=== PATIENT | female | born 1980 ===

== ENCOUNTER → 2021-03-14 09:46 | Outpatient (CLI) | payer OTHER, SELFPAY ==
[2021-03-14 10:35] LABS: Add Manual Diff / Slide Review NO; Basophils Absolute Auto 0 /uL (0-100); Basophils Percent Auto 0.6 % (0-2); Eosinophils Absolute Auto 100 /uL (0-450); Eosinophils Percent Auto 1.3 % (2-4); Hematocrit 39.1 % (36-46); Hemoglobin 13.1 g/dL (12.0-16.0); Lymphocytes Absolute Auto 1900 /uL (1100-4500); Lymphocytes Percent Auto 40.7 % (25-40); Mean Corpuscular HGB Conc 33.6 % (30-36); Mean Corpuscular Hemoglobin 30.5 PG (26-34); Mean Corpuscular Volume 90.9 fL (80-100); Monocytes Absolute Auto 500 /uL (0-900); Neutrophils Absolute Auto 2200 /uL (1500-7000); Neutrophils Percent Auto 47.4 % (50-75); Platelet Count 264 X10^3/uL (150-400); Red Cell Distribution Width 13.6 % (11.6-14.8); White Blood Cell Count 4.5 X10^3/uL (4.5-11.0)
[2021-03-14 10:54] LABS: UR Morphine/Opiate cutoff 300 Negative (Negative); Ur Creatinine Normal (Normal); Ur Specific Gravity Normal (Normal); Urine Amphetamines Negative (Negative); Urine Barbiturates Negative (Negative); Urine Benzodiazepines Negative (Negative); Urine Cocaine Negative (Negative); Urine MDMA Negative (Negative); Urine Methadone Negative (Negative); Urine Methamphetamines Negative (Negative); Urine Oxycodone Negative (Negative); Urine Phencyclidine Negative (Negative); Urine Tetrahydrocannabinol Negative (Negative); Urine Tricyclic Antidepressant Negative (Negative); Urine pH Normal (Normal)
[2021-03-14 11:15] LABS: Alanine Aminotransferase 19 IU/L (<35); Albumin 4.3 g/dL (3.5-5.0); Albumin Globulin Ratio 1.3 (1.0-2.8); Alkaline Phosphatase 36 U/L (38-126); Aspartate Aminotransferase 33 IU/L (14-36); Bilirubin Total 0.3 mg/dL (0.2-1.3); Blood Urea Nitrogen 17 mg/dL (7-17); Calcium 9.6 mg/dL (8.4-10.2); Carbon Dioxide 27 mmol/L (22-32); Chloride 103 mmol/L (98-107); Cholesterol 234 mg/dL (140-199); Estimated Glomerular Filt Rate > 60.0 mL/min (>60); Globulin 3.3 g/dL (1.7-4.1); Glucose 95 mg/dL (70-100); HEMOLYSIS < 15 (0-50); Potassium 3.6 mmol/L (3.4-5.1); Sodium 137 mmol/L (137-145); Total Protein 7.6 g/dL (6.3-8.2); Triglycerides 106 mg/dL (35-150)
[2021-03-14 11:23] LABS: HDL Cholesterol 125 mg/dL (40-60); LDL Cholesterol Calculated 88 mg/dL (<100)
[2021-03-14 11:48] LABS: TSH w/ Reflex to FT4 0.88 uIU/mL (0.47-4.68)
== END ==
PROVIDERS: PCP Registered Nurse; Referring Provider Registered Nurse; Visit Provider Registered Nurse
DX: D21.9 Benign neoplasm of connective and other soft tissue, unspecified (principal); F40.243 Fear of flying; F90.9 Attention-deficit hyperactivity disorder, unspecified type; Z79.899 Other long term (current) drug therapy; Z83.49 Family history of other endocrine, nutritional and metabolic diseases; Z82.49 Family history of ischemic heart disease and other diseases of the circulatory system
CPT/HCPCS: 36415; 80053; 80061; 80305; 84443; 85025

== ENCOUNTER → 2021-04-13 13:47 | Outpatient (CLI) | payer OTHER, SELFPAY ==
--- NOTE | 2021-04-13 13:48 | DI.MRI.S_ITS ---
PROCEDURE: MR THORACIC SPINE WO CON INDICATIONS: lower back pain (chronic) TECHNIQUE: Noncontrast sagittal T1 spine echo and T2 fast spin echo, sagittal STIR, axial T1 and T2 fast spin echo through the thoracic spine. COMPARISON: None. FINDINGS: Image quality: Excellent. Alignment and Curvature: Mild dextroconvex scoliotic curvature is seen. Bone Marrow: Marrow is of normal overall signal. No acute vertebral body compression fractures. Spinal Cord: Visualized spinal cord is normal in size and signal. Paraspinous Soft Tissues: No paravertebral masses. Miscellaneous: On axial images, central canal and foramina appear widely patent at all scanned levels. IMPRESSION: No significant focal disc pathology, central canal narrowing, or neural foraminal narrowing can be seen. Mild dextroconvex scoliotic curvature is seen. Dictated by: Toribio Etienne M.D. on 04/13/2021 at 15:49 Approved by: Toribio Etienne M.D. on 04/13/2021 at 15:50
== END ==
PROVIDERS: PCP Registered Nurse; Referring Provider Registered Nurse; Visit Provider Registered Nurse
DX: M54.5 Low back pain (principal); M41.9 Scoliosis, unspecified; G89.29 Other chronic pain
CPT/HCPCS: 72146

== ENCOUNTER → 2021-05-18 08:22 | Outpatient (CLI) | payer OTHER, SELFPAY | PROVIDERS: PCP Registered Nurse; Visit Provider Nurse Practitioner | DX: J02.9 Acute pharyngitis, unspecified (principal) | CPT/HCPCS: 87070 ==

== ENCOUNTER → 2021-05-20 14:27 | Outpatient (CLI) | payer OTHER, SELFPAY ==
[2021-05-21 09:39] LABS: Varicella IgG Antibody 1073 index (Immune >165)
[2021-05-21 11:15] LABS: Mumps Virus IgG Antibody 69.3 AU/mL (Immune >10.9)
[2021-05-23 14:30] LABS: Hepatitis Be Antibody Negative (Negative)
[2021-05-23 22:38] LABS: Diptheria Antitoxoid B <0.10 IU/mL (<0.10)
== END ==
PROVIDERS: PCP Registered Nurse; Referring Provider Registered Nurse; Visit Provider Registered Nurse
DX: Z23 Encounter for immunization (principal)
CPT/HCPCS: 36415; 86317; 86707; 86735; 86762; 86765; 86787

== ENCOUNTER → 2021-07-13 15:29 | Outpatient (CLI) | payer OTHER, SELFPAY ==
[2021-07-15 16:52] LABS: QuantiFERON Mitogen Value >10.00 IU/mL (.); QuantiFERON Nil Value 0.09 IU/mL (.); QuantiFERON TB Gold Plus Negative (Negative); QuantiFERON TB1 Ag Value 0.13 IU/mL (.); QuantiFERON TB2 Ag Value 0.13 IU/mL (.)
== END ==
PROVIDERS: PCP Registered Nurse; Referring Provider Nurse Practitioner; Visit Provider Nurse Practitioner
DX: Z11.1 Encounter for screening for respiratory tuberculosis (principal)
CPT/HCPCS: 36415; 86480

== ENCOUNTER 2021-09-12 01:26 | Emergency (ER) | payer OTHER, SELFPAY ==
--- NOTE | 2021-09-12 01:41 | DI.RAD.S_ITS ---
PROCEDURE: XR RIBS RT MIN 3V W CXR 1V INDICATIONS: Pain to Right posterior ribs, worse with inspiration, hx covid TECHNIQUE: 2 views of the right ribs were acquired, along with a single view chest. COMPARISON: None. FINDINGS: Surgical changes and devices: None. Bones and chest wall: No fractures or dislocations. No suspicious bony lesions. Overlying soft tissues appear unremarkable. Lungs and pleura: No pleural effusions or pneumothorax. Lungs appear clear. Mediastinum: Mediastinal contours appear normal. Heart size is normal. IMPRESSION: No acute cardiopulmonary abnormality. Normal right ribs Dictated by: Kunal Gorman M.D. on 09/12/2021 at 2:03 Approved by: Kunal Gorman M.D. on 09/12/2021 at 2:04
[2021-09-12 01:42] VITALS: BP 98/68; PULSE 95; RESP 17; TEMP 37.1; O2SAT 95; BMI 20.9
--- NOTE | 2021-09-12 02:24 | ED_ITS ---
HPI - Back Pain/Injury General Chief Complaint: Back Pain/Injury Stated Complaint: POSSIBLE BROKEN RIB HARD TO BREATH Time Seen by Provider: 09/12/21 02:01 Source: patient History of Present Illness HPI Narrative: 41-year-old woman with history of ADHD and occasional use of methylphenidate presents with severe right posterior rib and chest wall pain. She states that approximately 48 hours ago she was bending over to pull on a pair pants felt a slight tug or pull in the area of concern. It did not bother her particularly and she was able to go mountain biking later that day. This morning she found that she was in significantly more pain that continued to bother her much of the day. She was able to go to sleep around 11:00 p.m. and awoke at 1:00 p.m. with pain severe enough that she was unable to sleep or roll over in bed. She comes to the emergency department for further evaluation. She reports no recent fever, cough, chills, dyspnea, orthopnea, palpitations, vomiting, diarrhea, abdominal pain. Related Data Home Medications Medication Instructions Recorded Confirmed methylphenidate HCl 10 mg tablet 10 mg PO DAILY PRN tab 07/12/21 (Ritalin) Previous Rx's Medication Instructions Recorded diazepam 5 mg tablet (Valium) 5 mg PO ONCE PRN #5 tab 03/15/21 hepatitis B virus vacc.rec(PF) 20 1 ml IM ONCE #1 ml 07/12/21 mcg/mL intramuscular susp methylphenidate HCl 10 mg 10 mg PO QAM #30 tab 07/12/21 tablet,extended release Allergies Allergy/AdvReac Type Severity Reaction Status Date / Time No Known Drug Allergies Allergy Unverified 07/12/21 15:35 Review of Systems Review of Systems Narrative: Remainder of complete review of systems is otherwise unremarkable except for that included in the HPI. Patient History Medical History Chicken pox (~1986) Medication management Painful menstrual periods (~1993) Rubella (~1987) Surgical History Anesthesia History of placement of ear tubes Family History Grandfather History of heart disease Social History Smoking Status: Never smoker Smoking Status: Never smoker alcohol intake frequency: 0-2 drinks per day Substance Use Type: does not use Exam Initial Vital Signs Initial Vital Signs: Vital Signs Temperature 98.7 F 09/12/21 01:42 Pulse Rate 95 H 09/12/21 01:42 Respiratory Rate 17 09/12/21 01:42 Blood Pressure 98/68 09/12/21 01:42 Pulse Oximetry 95 09/12/21 01:42 General: Healthy appearing, in mild distress. Able to give a complete and coherent history. Well-nourished well-developed HEENT: Moist mucous membranes, normal sclera with reactive pupils, Respiratory: Lungs are clear to auscultation, no wheezing no rales no rhonchi. Full and symmetrical air movement Chest: No skin changes to suggest zoster. There is some mild fullness over the area of tenderness with reproducible pain on palpation. There are no abrasions, contusions and no subcutaneous air appreciated Cardiac: Regular rate and rhythm no murmurs no bruits Abdomen: Soft, nontender, good bowel tones, no flank pain Skin: Warm and dry, no rashes Neurologic: Grossly neurologically intact with no obvious asymmetries or abnormalities Extremities: No trauma, well perfused Psych: Cooperative, appropriate insight and affect Course Orders Ordered: ED Orders 09/12/21 01:41 XR ribs RT min 3V w CXR1V Stat Discontinued Medications Ketorolac Tromethamine (Ketorolac 30 Mg/Ml Vial) 30 mg IM NOW ONE Stop: 09/12/21 02:54 Oxycodone/Acetaminophen (Oxycodone/Apap 5/325 Prepack) 1 bottle MISC SEEINSTR ONE Stop: 09/12/21 02:54 Vital Signs Vital signs: Vital Signs - 8 hr 09/12/21 01:42 Temperature 98.7 F Pulse Rate 95 H Respiratory Rate 17 Blood Pressure 98/68 Pulse Oximetry 95 MDM - Back Pain/Injury Imaging Data Chest x-ray: Radiologist's Impression: FINDINGS:? ? Surgical changes and devices:? None.? ? Bones and chest wall:? No fractures or dislocations.? No suspicious bony lesions.? Overlying soft tissues appear unremarkable.? ? Lungs and pleura:? No pleural effusions or pneumothorax.? Lungs appear clear.? ? Mediastinum:? Mediastinal contours appear normal.? Heart size is normal.? ? IMPRESSION:? No acute cardiopulmonary abnormality.? Normal right ribs ? ? Dictated by: Kunal Gorman M.D. on 09/12/2021 at 2:03? ?? MDM Narrative Medical decision making narrative: 41-year-old woman presents with right-sided posterior rib pain after feeling a slight pull and tug to the area while she was getting dressed yesterday morning. The pain has progressed to the point that it woke her from sleep and she is having trouble taking a deep breath. She took some ibuprofen yesterday and did find that it was somewhat helpful she did not take any additional medication today. She reports no cough fevers. Chest x-ray is unremarkable. Physical exam suggests some fullness over the area of concern consistent with probable mild muscle strain. No evidence of pneumothorax, consolidation to the lung or pulmonary infarct. No other musculoskeletal complaints and no other appreciated trauma. Findings are reviewed with patient recommendations for ibuprofen and Tylenol are made with 4 tablets of Percocet given for immediate pain relief when she gets home and to help to the next 24-48 hours. She is safe for home discharge Discharge Plan Departure Patient Disposition: Home Clinical Impression: Chest wall muscle strain Instructions: DI for Back Strain or Sprain Activity Restrictions/Additional Instructions: Thank you for coming in tonight Your x-ray is very reassuring. You do have some swelling and tenderness over that area of concern on your back. There are no skin changes to suggest shingl es. I suspect that you twisted and pulled just right and strained some of the muscles around the ribs on the right side which is why your hurting so much. Frequently with chest wall muscles like this you will hurt the most the day after the injury. Today should be the worst but it may continue to hurt this much for the next 24 hours. Your given a shot of Toradol which is an anti inflammatory in the emergency department. If you are still hurting by the time you get home please take 1 Percocet. Using 400 mg of ibuprofen (2 [id number] pills) and 1 Tylenol every 6 hours can be very helpful in controlling pain. For severe pain you can take 400 mg of ibuprofen and 1 Percocet. If you have new symptoms, developed a rash, find that your hurting more by Sunday or Sunday you do need to return to the emergency department for further evaluation. Prescriptions: No Action diazepam [Valium] 5 mg tablet 5 mg PO ONCE PRN (Reason: fear of flying) Qty: 5 0RF methylphenidate HCl [Ritalin] 10 mg tablet 10 mg PO DAILY PRN (Reason: ADHD) 0RF hepatitis B virus vacc.rec(PF) 20 mcg/mL suspension 1 ml IM ONCE Qty: 1 2RF Rx Instructions: As a single dose, 2nd dose in 4-8 weeks, then 3rd dose 4-6 months after 1st dose methylphenidate HCl 10 mg tablet extended release 10 mg PO QAM Qty: 30 0RF Rx Instructions: Take 1 tab each morning for ADHD symptoms Referrals: Chica Potter ARNP [Primary Care Provider] -
[2021-09-12] MEDS: KETOROLAC 30 MG/ML VIAL IM (03:06)
[2021-09-12] MEDS: OXYCODONE/APAP 5/325 PREPACK 1 BOTTLE MISC (03:06)
== END 2021-09-12 03:35 | disposition home or self-care (01) ==
PROVIDERS: Emergency Provider Emergency Medicine; PCP Registered Nurse
DX: S29.011A Strain of muscle and tendon of front wall of thorax, initial encounter (principal); X50.1XXA Overexertion from prolonged static or awkward postures, initial encounter
CPT/HCPCS: 71101; 96372; 99283; J1885

== ENCOUNTER → 2021-09-30 08:37 | Outpatient (CLI) | payer OTHER, SELFPAY ==
--- NOTE | 2021-09-30 08:37 | DI.MG.S_ITS ---
BILATERAL DIGITAL DIAGNOSTIC MAMMOGRAM 3D/2D: 09/30/2021 CLINICAL: Palpable right breast lump. Comparison is made to exams dated: 04/17/2019 ultrasound, 08/08/2018 ultrasound, and 08/08/2018 mammogram - outside. The tissue of both breasts is heterogeneously dense. This may lower the sensitivity of mammography. There is a 4 cm oval mass with a circumscribed margin in the right breast at 11 o'clock posterior depth. There also is a 3.4 cm oval mass with a circumscribed margin in the right breast at 4 o'clock posterior depth. This correlates as palpated. There is a 3 cm oval mass in the left breast central to the nipple posterior depth. There also is a 3.6 cm irregular mass in the left breast at 1 o'clock anterior depth. No other significant masses or calcifications are seen in either breast. IMPRESSION: INCOMPLETE: NEEDS ADDITIONAL IMAGING EVALUATION The 4 cm oval mass in the right breast at 11 o'clock posterior depth is indeterminate. An ultrasound is recommended. The 3.4 cm oval mass in the right breast at 4 o'clock posterior depth is indeterminate. An ultrasound is recommended. The 3 cm oval mass in the left breast central to the nipple posterior depth is indeterminate. An ultrasound is recommended. The 3.6 cm irregular mass in the left breast at 1 o'clock anterior depth is indeterminate. An ultrasound is recommended. A targeted ultrasound of the bilateral breasts is recommended. A right breast ultrasound will be performed immediately following this exam, and a left breast ultrasound will be scheduled at a later date. This exam was interpreted at Station ID: [id number]. NOTE: For mammograms, a report in lay terms will be sent to the patient. Approximately 15% of breast malignancies will not be visualized mammographically. In the management of a palpable breast mass, a negative mammogram must not discourage biopsy of a clinically suspicious lesion. Electronically Signed By: Linh bowers/:10/03/2021 09:27:48 letter sent: Need Ultrasound ACR BI-RADS Category 0: Incomplete 3340F
--- NOTE | 2021-09-30 08:37 | DI.US.S_ITS ---
ULTRASOUND OF RIGHT BREAST: 09/30/2021 CLINICAL: Palpable right breast lump + second mammo abn. Comparison is made to exams dated: 09/30/2021 mammogram - Located Within [facility], 04/17/2019 ultrasound, 08/08/2018 ultrasound, and 08/08/2018 mammogram - outside. Color flow ultrasound of the right breast was performed on the areas of interest. Elise scale images of the real-time examination were reviewed. There is a benign 4 cm x 1.7 cm x 3.1 cm irregular simple cyst in the right breast at 11 o'clock middle depth. This correlates with mammography findings. There also is a benign 3.4 cm x 2.4 cm x 3.4 cm oval simple cyst in the right breast at 8 o'clock middle depth. This correlates as palpated and with mammography findings. IMPRESSION: BENIGN There is no sonographic evidence of malignancy. The 4 cm x 1.7 cm x 3.1 cm irregular simple cyst in the right breast at 11 o'clock middle depth is benign. The 3.4 cm x 2.4 cm x 3.4 cm oval simple cyst in the right breast at 8 o'clock middle depth is benign. A 1 year right screening mammogram is recommended. A left breast ultrasound will be scheduled at a later date to evaluate the mammographic findings on the mammogram dated 09/30/2021. This exam was interpreted at Station ID: [id number]. Electronically Signed By: Linh Beckham M.D. lk/:10/03/2021 09:28:11 Ultrasound BI-RADS: 2 Benign
== END ==
PROVIDERS: PCP Registered Nurse; Referring Provider Registered Nurse; Visit Provider Registered Nurse
DX: R92.8 Other abnormal and inconclusive findings on diagnostic imaging of breast (principal); N60.01 Solitary cyst of right breast; N63.21 Unspecified lump in the left breast, upper outer quadrant; N63.42 Unspecified lump in left breast, subareolar
CPT/HCPCS: 76642; 77066; G0279

== ENCOUNTER → 2022-02-28 14:03 | Outpatient (CLI) | payer OTHER, SELFPAY ==
--- NOTE | 2022-02-28 14:04 | DI.US.S_ITS ---
PROCEDURE: US PELVIC COMPLETE INDICATIONS: reeval fibroid, worsening menorrhagia TECHNIQUE: Real-time scanning was performed of the pelvic organs, with image documentation. Additional endovaginal scanning was necessary due to incomplete visualization of the adnexal and endometrial structures by transabdominal scanning. COMPARISON: None. FINDINGS: Uterus: Uterus is retroverted and normal in size at 7.3 x 5 x 5.4 cm. The myometrium is homogeneous. The endometrium measures 8 mm combined thickness. A 0.6 cm midline anterior intramural fibroid is seen. No additional midline posterior 0.7 cm intramural fibroid is seen. Ovaries: The right ovary measures 2.9 x 1.9 x 1.8 cm. The left ovary measures 3.1 x 1.6 x 1.4 cm. The ovaries have a normal sonographic appearance. Less than 12 follicles can be seen in each ovary. No adnexal masses are seen. Other: No pathologic free abdominal or pelvic fluid. IMPRESSION: 1. No acute sonographic abnormality in the pelvis. 2. Two subcentimeter intramural uterine fibroids are noted. We strive to produce accurate, complete, and clear reports of imaging services. To assist us in improving patient care, this report was composed using standard report templates and voice recognition software. Therefore, it may contain abnormal punctuation, insertions and/or omissions. Occasional wrong-word or sound-alike substitutions may occur. Though we review the report and make efforts to correct it, we do recommend that the report be read carefully in proper context to recognize any text inaccuracies. Dictated by: Uli Craig M.D. on 02/28/2022 at 17:01 Approved by: Uli Craig M.D. on 02/28/2022 at 17:07
--- NOTE | 2022-02-28 14:04 | DI.US.S_ITS ---
LIMITED ULTRASOUND OF LEFT BREAST AND AXILLA: 02/28/2022 CLINICAL: Patient returns for additional imaging over a suspected mass in the left breast. Comparison is made to exams dated: 09/30/2021 mammogram - [facility], 04/17/2019 ultrasound, 08/08/2018 ultrasound, 08/08/2018 mammogram - outside, and 09/30/2021 ultrasound - [facility]. Color flow and real-time ultrasound of the left breast were performed. Elise scale images of the real-time examination were reviewed. There is a benign 2.9 cm x 2.3 cm x 1.9 cm oval simple cyst in the left breast at 3 o'clock posterior depth 2 cm from the nipple. This oval simple cyst is anechoic. This correlates with mammography findings. Color flow imaging demonstrates that there is no vascularity present. There also is a benign 1.3 cm x 0.9 cm x 0.8 cm oval cyst with a septated internal wall in the left breast at 6 o'clock middle depth 3 cm from the nipple. This oval cyst displays posterior acoustic enhancement. Color flow imaging demonstrates that there is no vascularity present. No mass or cyst identified in the 12:00 or 1:00 regions. IMPRESSION: BENIGN No sonographic evidence of malignancy. Multiple bilateral circumscribed cysts. Several benign cysts are identified in the left breast. Largest measuring 2.9 cm in the 3:00 region. A 1 year screening mammogram is recommended. Last bilateral mammogram Sep 2021. Exam findings were conveyed to the patient. Patient is advised to monitor for significant change. Clinical follow-up as needed. Cyst aspiration could be considered if the cysts become painful. This exam was interpreted at Station ID: [id number]. Electronically Signed By: Grant Mann M.D. [facility]/:02/28/2022 15:11:56 letter sent: Normal Exam Ultrasound BI-RADS: 2 Benign
== END ==
PROVIDERS: PCP Registered Nurse Diabetes Educator; Referring Provider Registered Nurse Diabetes Educator; Visit Provider Registered Nurse Diabetes Educator
DX: D25.1 Intramural leiomyoma of uterus (principal); N92.0 Excessive and frequent menstruation with regular cycle; N60.02 Solitary cyst of left breast
CPT/HCPCS: 76642; 76830; 76856

== ENCOUNTER → 2022-04-17 14:04 | Outpatient (CLI) | payer OTHER, SELFPAY ==
[2022-04-17 16:03] LABS: Hematocrit 35.2 % (36-46); Hemoglobin 12.1 g/dL (12.0-16.0); Mean Corpuscular HGB Conc 34.5 % (30-36); Mean Corpuscular Volume 89.8 fL (80-100); Platelet Count 244 X10^3/uL (150-400); Red Blood Cell Count 3.92 X10^6/uL (4.0-5.2); Red Cell Distribution Width 13.8 % (11.6-14.8); White Blood Cell Count 4.9 X10^3/uL (4.5-11.0)
== END ==
PROVIDERS: PCP Registered Nurse Diabetes Educator; Referring Provider Registered Nurse Diabetes Educator; Visit Provider Registered Nurse Diabetes Educator
DX: R42 Dizziness and giddiness (principal)
CPT/HCPCS: 36415; 85027

== ENCOUNTER → 2022-07-08 10:21 | Outpatient (CLI) | payer OTHER, SELFPAY | PROVIDERS: PCP Registered Nurse Diabetes Educator; Visit Provider Physician Assistant | DX: J02.9 Acute pharyngitis, unspecified (principal) | CPT/HCPCS: 87070 ==

== ENCOUNTER → 2022-10-04 13:51 | Outpatient (CLI) | payer OTHER, SELFPAY ==
[2022-10-04 15:01] LABS: Influenza A - CEPHEID Flu A NEGATIVE (NEGATIVE); Influenza B - CEPHEID Flu B NEGATIVE (NEGATIVE); Respiratory Syncytial Virus Negative (Negative)
[2022-10-04 15:07] LABS: COVID-19 CEPHEID 4-PLEX PCR POSITIVE (Negative)
== END ==
PROVIDERS: PCP Registered Nurse Diabetes Educator; Visit Provider Nurse Practitioner Family
DX: J02.9 Acute pharyngitis, unspecified (principal)
CPT/HCPCS: 0241U; 87070; 87147

== ENCOUNTER → 2022-11-03 08:05 | Outpatient (CLI) | payer OTHER, SELFPAY ==
[2022-11-03 08:20] LABS: Hematocrit 35.8 % (36-46); Mean Corpuscular HGB Conc 33.5 % (30-36); Mean Corpuscular Volume 89.6 fL (80-100); Platelet Count 255 X10^3/uL (150-400); Red Cell Distribution Width 13.4 % (11.6-14.8); White Blood Cell Count 5.2 X10^3/uL (4.5-11.0)
[2022-11-03 08:32] LABS: Alanine Aminotransferase 20 IU/L (<35); Albumin 4.3 g/dL (3.5-5.0); Albumin Globulin Ratio 1.3 (1.0-2.8); Alkaline Phosphatase 34 U/L (38-126); Aspartate Aminotransferase 28 IU/L (14-36); BUN Creatinine Ratio 16.3 (6-22); Bilirubin Total 0.2 mg/dL (0.2-1.3); Blood Urea Nitrogen 13 mg/dL (7-17); Calcium 9.2 mg/dL (8.4-10.2); Carbon Dioxide 28 mmol/L (22-32); Chloride 103 mmol/L (98-107); Cholesterol 198 mg/dL (140-199); Estimated Glomerular Filt Rate > 60 mL/min (>60); Globulin 3.2 g/dL (1.7-4.1); Glucose 71 mg/dL (70-100); HDL Cholesterol 86 mg/dL (40-60); HEMOLYSIS < 15 (0-50); LDL Cholesterol Calculated 100 mg/dL (<100); Potassium 3.8 mmol/L (3.4-5.1); Sodium 138 mmol/L (137-145); Total Protein 7.5 g/dL (6.3-8.2); Triglycerides 58 mg/dL (35-150)
[2022-11-03 08:49] LABS: Follicle Stimulating Hormone 6.02 mIU/mL
[2022-11-03 09:05] LABS: Estradiol, Total 45.1 pg/mL
[2022-11-03 09:21] LABS: Vitamin B12 481 pg/mL (239-931)
[2022-11-03 09:31] LABS: Free T4, Direct Thyroxine 0.97 ng/dL (0.78-2.19)
[2022-11-03 09:39] LABS: Vitamin D 25 Hydroxy (D3) 23.2 ng/mL (30.0-100.0)
== END ==
PROVIDERS: PCP Registered Nurse Diabetes Educator; Referring Provider Registered Nurse Diabetes Educator; Visit Provider Registered Nurse Diabetes Educator
DX: D64.9 Anemia, unspecified (principal); R89.9 Unspecified abnormal finding in specimens from other organs, systems and tissues; R45.86 Emotional lability; R53.83 Other fatigue; R68.82 Decreased libido; Z00.00 Encounter for general adult medical examination without abnormal findings; Z83.49 Family history of other endocrine, nutritional and metabolic diseases
CPT/HCPCS: 36415; 80053; 80061; 82306; 82607; 82670; 83001; 84403; 84439; 84443; 85027

== ENCOUNTER → 2022-12-21 08:04 | Outpatient (CLI) | payer OTHER, SELFPAY ==
--- NOTE | 2022-12-21 | DI.MG.S_ITS ---
BILATERAL DIGITAL SCREENING MAMMOGRAM 3D/2D WITH CAD: 12/21/2022 CLINICAL: Routine screening. Comparison is made to exams dated: 09/30/2021 mammogram - [facility], 08/08/2018 mammogram - outside, 02/28/2022 ultrasound, and 09/30/2021 ultrasound - [facility]. Both breasts are heterogeneously dense, which may obscure small masses (category c / 51-75% glandular tissue). Current study was also evaluated with a Computer Aided Detection (CAD) system. No significant masses, calcifications, or other findings are seen in either breast. There has been no significant interval change. IMPRESSION: NEGATIVE There is no mammographic evidence of malignancy. A 1 year screening mammogram is recommended. Future imaging is recommended as follows: 03/01/2023 screening mammogram. Based on the Tyrer Cuzick model (a risk assessment model) the patient's lifetime risk is 14.0% and her 10 year risk is 1.9%. According to the ACR, ACS, and NCCN guidelines, an annual breast MRI exam along with mammogram is recommended if the patient's lifetime risk is 20% or greater. This exam was interpreted at Station ID: [id number]. NOTE: For mammograms, a report in lay terms will be sent to the patient. Approximately 15% of breast malignancies will not be visualized mammographically. In the management of a palpable breast mass, a negative mammogram must not discourage biopsy of a clinically suspicious lesion. Electronically Signed By: Evan smith/niurka:12/21/2022 08:34:18 letter sent: Normal Exam ACR BI-RADS Category 1: Negative [id number]
--- NOTE | 2022-12-21 08:06 | DI.US.S_ITS ---
PROCEDURE: US PELVIC COMPLETE INDICATIONS: reeval fibroids TECHNIQUE: Real-time scanning was performed of the pelvic organs, with image documentation. Additional endovaginal scanning was necessary due to incomplete visualization of the adnexal and endometrial structures by transabdominal scanning. COMPARISON: [facility], US, US PELVIC COMPLETE, 02/28/2022, 14:39. FINDINGS: Uterus: Uterus is retroverted and normal in size at 8.2 x 6.3 x 5 cm. The endometrium measures 16.4 mm combined thickness. Hypoechoic uterine lesions are seen, which are attributed to fibroids. They measure as follows: Mid anterior uterus, intramural, 0.9 x 0.8 x 0.5 cm Mid posterior uterus, intramural, 0.6 x 0.5 x 0.4 cm Ovaries: The right ovary measures 2.6 x 1 x 1.4 cm, with a calculated ovarian volume of 2 cc. The left ovary measures 3.1 x 2.3 x 1.9 cm, with a calculated ovarian volume of 7.2 cc. Within the left ovary, there is a collapsing cyst with peripheral vascularity that measures up to 1.8 cm. No adnexal masses are seen. Other: There is a moderate amount free fluid seen within the pelvic cul-de-sac as well as within the right adnexa. IMPRESSION: 2 subcentimeter fibroids can be seen. There is a moderate amount of free fluid seen within the pelvic cul-de-sac and within the right adnexal region. The endometrial stripe measures near the upper limits of normal. Resolving left ovarian cyst with peripheral vascularity. We strive to produce accurate, complete, and clear reports of imaging services. To assist us in improving patient care, this report was composed using standard report templates and voice recognition software. Therefore, it may contain abnormal punctuation, insertions and/or omissions. Occasional wrong-word or sound-alike substitutions may occur. Though we review the report and make efforts to correct it, we do recommend that the report be read carefully in proper context to recognize any text inaccuracies. Dictated by: Toribio Etienne M.D. on 12/21/2022 at 15:52 Approved by: Toribio Etienne M.D. on 12/21/2022 at 15:54
== END ==
PROVIDERS: PCP Registered Nurse Diabetes Educator; Referring Provider Registered Nurse Diabetes Educator; Visit Provider Registered Nurse Diabetes Educator
DX: Z12.31 Encounter for screening mammogram for malignant neoplasm of breast (principal); D25.1 Intramural leiomyoma of uterus; N83.202 Unspecified ovarian cyst, left side
CPT/HCPCS: 76830; 76856; 77063; 77067

== ENCOUNTER → 2023-11-19 15:00 | Outpatient (CLI) | payer OTHER, SELFPAY ==
--- NOTE | 2023-11-19 15:01 | DI.US.S_ITS ---
PROCEDURE: US PELVIC COMPLETE INDICATIONS: eval low abdominal pain TECHNIQUE: Real-time scanning was performed of the pelvic organs, with image documentation. Additional endovaginal scanning was necessary due to incomplete visualization of the adnexal and endometrial structures by transabdominal scanning. COMPARISON: [facility], US, US PELVIC COMPLETE, 12/21/2022, 9:12. FINDINGS: Uterus: Uterus is retroverted and normal in size at 8.4 x 4.8 x 4.5 cm. The myometrium is homogeneous. The endometrium measures 13 mm combined thickness. No intrauterine abnormalities identified. Ovaries: The right ovary measures 3.1 x 1.6 x 1.6 cm, with a calculated ovarian volume of 4.1 cc. The left ovary measures 2.7 x 2.0 x 2.7 cm, with a calculated ovarian volume of 7.6 cc. There is a 2.2 cm simple cyst versus dominant follicle. The ovaries have a normal sonographic appearance. Less than 12 follicles can be seen in each ovary. No adnexal masses are seen. Other: No pathologic free abdominal or pelvic fluid. IMPRESSION: Unremarkable sonographic evaluation of the pelvis. Previously seen moderate amount of pelvic free fluid has resolved. Previously described resolving left ovarian cyst is also no longer visualized. We strive to produce accurate, complete, and clear reports of imaging services. To assist us in improving patient care, this report was composed using standard report templates and voice recognition software. Therefore, it may contain abnormal punctuation, insertions and/or omissions. Occasional wrong-word or sound-alike substitutions may occur. Though we review the report and make efforts to correct it, we do recommend that the report be read carefully in proper context to recognize any text inaccuracies. Dictated by: Jair Davis M.D. on 11/19/2023 at 21:34 Approved by: Jair Davis M.D. on 11/19/2023 at 21:37
== END ==
LOC: US 15:00
PROVIDERS: PCP Registered Nurse Diabetes Educator; Referring Provider Registered Nurse Diabetes Educator; Visit Provider Registered Nurse Diabetes Educator
DX: R10.30 Lower abdominal pain, unspecified (principal)
CPT/HCPCS: 76830; 76856; 93976

== ENCOUNTER → 2024-01-11 08:18 | Outpatient (CLI) | payer OTHER, SELFPAY ==
--- NOTE | 2024-01-11 08:19 | DI.MG.S_ITS ---
BILATERAL DIGITAL SCREENING MAMMOGRAM 3D/2D WITH CAD: 01/11/2024 CLINICAL: Routine screening. Family history of breast cancer. Comparison is made to exams dated: 12/21/2022 mammogram, 09/30/2021 mammogram - [facility], and 08/08/2018 mammogram - outside. Both breasts are heterogeneously dense, which may obscure small masses (category c / 51-75% glandular tissue). Current study was also evaluated with a Computer Aided Detection (CAD) system. There are multiple round and oval masses with circumscribed margins seen in both breasts. No significant masses, calcifications, or other findings are seen in either breast. IMPRESSION: BENIGN There are multiple, bilateral, round and oval benign appearing masses. There is no mammographic evidence of malignancy. A 1 year screening mammogram is recommended. Based on the Tyrer Cuzick model (a risk assessment model) the patient's lifetime risk is 19.5% and her 10 year risk is 3.0%. According to the ACR, ACS, and NCCN guidelines, an annual breast MRI exam along with mammogram is recommended if the patient's lifetime risk is 20% or greater. This exam was interpreted at Station ID: [id number]. NOTE: For mammograms, a report in lay terms will be sent to the patient. Approximately 15% of breast malignancies will not be visualized mammographically. In the management of a palpable breast mass, a negative mammogram must not discourage biopsy of a clinically suspicious lesion. Electronically Signed By: Cassidy Dunne M.D., Ph.D. eb/:01/11/2024 10:03:41 letter sent: Normal Exam ACR BI-RADS Category 2: Benign Finding(s) 3342F
== END ==
LOC: MAMMO 08:18
PROVIDERS: PCP Registered Nurse Diabetes Educator; Referring Provider Registered Nurse Diabetes Educator; Visit Provider Registered Nurse Diabetes Educator
DX: Z12.31 Encounter for screening mammogram for malignant neoplasm of breast (principal); Z80.3 Family history of malignant neoplasm of breast; R92.333 Mammographic heterogeneous density, bilateral breasts
CPT/HCPCS: 77063; 77067

== ENCOUNTER → 2024-09-18 08:25 | Outpatient (CLI) | payer OTHER, SELFPAY ==
[2024-09-18 09:00] LABS: Hematocrit 38.5 % (36-46); Hemoglobin 12.8 g/dL (12.0-16.0); Mean Corpuscular HGB Conc 33.2 % (30-36); Mean Corpuscular Hemoglobin 30.1 PG (26-34); Mean Corpuscular Volume 90.6 fL (80-100); Platelet Count 291 X10^3/uL (150-400); Red Blood Cell Count 4.25 X10^6/uL (4.0-5.2); Red Cell Distribution Width 13.4 % (11.6-14.8); White Blood Cell Count 4.5 X10^3/uL (4.5-11.0)
[2024-09-18 09:26] LABS: Alanine Aminotransferase 21 IU/L (<35); Albumin 4.6 g/dL (3.5-5.0); Albumin Globulin Ratio 1.6 (1.0-2.8); Alkaline Phosphatase 37 U/L (38-126); Aspartate Aminotransferase 29 IU/L (14-36); BUN Creatinine Ratio 19.5 (6-22); Bilirubin Total 0.4 mg/dL (0.2-1.3); Blood Urea Nitrogen 16 mg/dL (7-17); Calcium 9.8 mg/dL (8.4-10.2); Carbon Dioxide 29 mmol/L (22-32); Chloride 103 mmol/L (98-107); Cholesterol 251 mg/dL (140-199); Estimated Glomerular Filt Rate > 60 mL/min (>60); Globulin 2.9 g/dL (1.7-4.1); Glucose 92 mg/dL (70-100); HEMOLYSIS < 15 (0-50); Potassium 3.9 mmol/L (3.4-5.1); Sodium 136 mmol/L (137-145); Total Protein 7.5 g/dL (6.3-8.2); Triglycerides 70 mg/dL (35-150)
[2024-09-18 09:35] LABS: HDL Cholesterol 116 mg/dL (40-60); LDL Cholesterol Calculated 121 mg/dL (<100)
[2024-09-18 09:41] LABS: Vitamin D 25 Hydroxy (D3) 19.9 ng/mL (30.0-100.0)
[2024-09-18 09:42] LABS: Follicle Stimulating Hormone 3.59 mIU/mL
[2024-09-18 09:46] LABS: Free T4, Direct Thyroxine 0.97 ng/dL (0.78-2.19)
[2024-09-18 09:58] LABS: Estradiol, Total 107.9 pg/mL
[2024-09-18 10:00] LABS: Thyroid Stimulating Hormone 1.19 uIU/mL (0.47-4.68)
[2024-09-18 10:19] LABS: Vitamin B12 548 pg/mL (239-931)
== END ==
LOC: LAB 08:26
PROVIDERS: PCP Registered Nurse Diabetes Educator; Referring Provider Registered Nurse Diabetes Educator; Visit Provider Registered Nurse Diabetes Educator
DX: R41.3 Other amnesia (principal); N95.1 Menopausal and female climacteric states; Z71.89 Other specified counseling
CPT/HCPCS: 36415; 80053; 80061; 82306; 82607; 82670; 83001; 84439; 84443; 85027

== ENCOUNTER → 2024-09-23 16:16 | Outpatient (CLI) | payer OTHER, SELFPAY ==
--- NOTE | 2024-09-23 16:17 | DI.MRI.S_ITS ---
PROCEDURE: MR HEAD/BRAIN WO/W CON INDICATIONS: eval recent memory changes, hx brain cyst 2012 [facility] imaging TECHNIQUE: Noncontrast axial T1 spin echo, axial T2 fast spin echo, sagittal and axial FLAIR, coronal T2 fast spin echo, axial gradient echo, axial diffusion and ADC through the brain. After the administration of contrast, axial and coronal and sagittal 3D VIBE or T1 spin echo with fat saturation through the brain. COMPARISON: No prior exams available FINDINGS: CSF Spaces: Basal cisterns are patent. No extra-axial fluid collections. Ventricles are normal in size and shape. Brain: No intracerebral masses or hemorrhage. Elise/white matter interface is normal. Brainstem appears normal. Diffusion-weighted sequence is unremarkable without evidence of acute infarct. Normal intravascular flow voids are present. There is a hypoenhancing nodule in the anterior superior pituitary measuring 1.2 by 0.8 by 0.8 cm consistent with small macroadenoma. Nodule extends into the suprasellar cistern and deviates the pituitary infundibulum to the right slightly. There is no cavernous sinus invasion or displacement of the optic chiasm Skull and face: Calvarial marrow is normal in signal. Orbits appear normal. 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 on 09/24/2024 at 17:39
== END ==
PROVIDERS: PCP Registered Nurse Diabetes Educator; Referring Provider Registered Nurse Diabetes Educator; Visit Provider Registered Nurse Diabetes Educator
DX: D35.2 Benign neoplasm of pituitary gland (principal); G93.0 Cerebral cysts; R41.3 Other amnesia
CPT/HCPCS: 70553; A9579

== ENCOUNTER → 2024-10-11 09:51 | Outpatient (CLI) | payer OTHER, SELFPAY ==
[2024-10-11 10:58] LABS: HEMOLYSIS < 15 (0-50); Iron 73 ug/dL (37-170)
[2024-10-11 11:10] LABS: Percent Iron Saturation 25 % (15-50); Total Iron Binding Capacity 292 ug/dL (265-497); Transferrin 287 mg/dL (206-381)
[2024-10-11 11:16] LABS: Luteinizing Hormone 2.86 mIU/mL
[2024-10-11 11:17] LABS: Prolactin 17.2 ng/mL (3.0-18.6)
[2024-10-11 11:31] LABS: Cortisol AM (Before 10AM) 6.57 ug/dL (4.46-22.7)
[2024-10-11 11:35] LABS: Ferritin 11 ng/mL (6-137)
[2024-10-12 10:12] LABS: Adrenocorticotropic Hormone 25.6 pg/mL (7.2-63.3)
== END ==
PROVIDERS: PCP Registered Nurse Diabetes Educator; Referring Provider Registered Nurse Diabetes Educator; Visit Provider Registered Nurse Diabetes Educator
DX: D35.2 Benign neoplasm of pituitary gland (principal)
CPT/HCPCS: 36415; 82024; 82533; 82728; 83002; 83520; 83540; 83550; 84146; 84305

== ENCOUNTER 2025-01-20 08:15 | Outpatient (RCR) | payer OTHER, SELFPAY ==
--- NOTE | 2025-01-01 13:00 | OT.OPPOC ---
Physical, Occupational & Speech Therapy At [facility] Gem Barajas [id number] 1980 Visit Care Team Role Provider Type LAMBERT Turner Family Provider Advanced [employer] Electrician Primary Care Provider Address: [address] [place] [address], [id number] Yuridia Buckner PA-C Attending Provider [employer] Referring Provider Address: [address] [place] [address], [id number] Occupational Therapy Plan of Care OT Outpatient Adult Evaluation Start: 01/01/25 08:15 Freq: Status: Active Protocol: Document 01/01/25 14:36 (Rec: 01/01/25 16:30 [id number]) General Information - Adult Visit Information Visit Number 1 of 10 Plan of Care Dates 01/01/25-03/12/25 Session Time Visit Start Date 01/01/25 Visit Start Time 13:00 Visit Stop Time 13:45 Visit Type Note Type Initial Evaluation Social Information Social History I tried to not say anything about it at first but it has been persistent 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 States pain level is the same intensity every time it is elicited and describes the pain as a pinching that radiates along her L tricep rating pain 4 out of 10. Pt states she notices pain most during overhead activities, putting her hand behind her back, and during exercises such as tricep stretching and pushups. Goals Objective Measurements Objective MMT BUE 5/5 in all planes, testing as follows: Obriens Measurements (+), Cross body adduction (+), Painful Arc (+ at ~120*) , Alyx (+), Evangelista (+), Neer (+), AC joint distraction (-), pain also elicited during MMT of bicep flexion/internal rotation of shoulder/shoulder flexion Treatment Treatment Pt educated on pain management techniques and HEP Short Term Goals Short Term Goals 1. Pt will independently demonstrate HEP for increased strength of rotator cuff within 3 weeks. 2. Pt will demonstrate decreased pain of 2/10 or less with AROM of shoulder within 3 weeks. 3. Pt will normalize postural alignment with verbal/ tactile cuing during static and dynamic tasks within 3 weeks. Activity Aide Goals Detention Goals 1. Pt will demonstrate decreased pain of 2 or less during overhead activities within 6 weeks. 2. Pt will demonstrate proper posture and scapular positioning during dynamic movement without verbal cues throughout session within 6 weeks. 3. Pt will score <10 on QuickDASH assessment within 6 weeks. Assessment/Plan Assessment Patient Response Excellent Rehabilitation Excellent Potential Impairments Body Mechanics,Pain,Posture Identified Treatment Assessment Pt is a 44 year old female presenting with L shoulder pain beginning August 2024 with discomfort during resistive exercise and movement as well as when lying on L side for >30min. Pt states describes the pain as a pinching that radiates along her L tricep rating pain 4 out of 10. Symptoms consistent with shoulder impingement syndrome and possible AC joint dysfunction. Pt was educated on anatomy and etiology of symptoms as well as pain management techniques and HEP. Pt will benefit from continued skilled OT to reduce pain during functional activities and address postural and strength deficits. Home Exercise AROM of shoulder, scapular strengthening, wall glides Program Reviewed with Goals,Progress Being Made,Home Exercise Program Patient Patient Excellent Understanding Plan Length of treatment 10 (weeks) Plan of Care Start 01/01/25 Date Plan of Care End 03/12/25 Date Treatment Frequency Once a Week Treatment Duration 45 Minutes Therapeutic Contents Active Range of Motion,Functional Activities,Home Exercise Program,Manual Therapy,Education,Neuromuscular Re-Education,Therapeutic Activities,Therapeutic Exercises Modalities As Needed Types of Modalities Other Additional Types of Moist hot pack, cold pack, Modalities Patient Instruction Home Exercise Program,Plan of Care,Questions/Concerns Patient Continue with Current Program Recommendations Functional Wrist/Hand Scan Hand Side Sensory Assessment Sensory Profile2 OT Outpatient Assessment / Plan Start: 01/01/25 08:15 Freq: Status: Active Protocol: Document 01/01/25 14:36 (Rec: 01/01/25 16:30 [id number]) Assessment/Plan Assessment Patient Response Excellent Rehabilitation Excellent Potential Impairments Body Mechanics,Pain,Posture Identified Treatment Assessment Pt is a 44 year old female presenting with L shoulder pain beginning August 2024 with discomfort during resistive exercise and movement as well as when lying on L side for >30min. Pt states describes the pain as a pinching that radiates along her L tricep rating pain 4 out of 10. Symptoms consistent with shoulder impingement syndrome and possible AC joint dysfunction. Pt was educated on anatomy and etiology of symptoms as well as pain management techniques and HEP. Pt will benefit from continued skilled OT to reduce pain during functional activities and address postural and strength deficits. Home Exercise AROM of shoulder, scapular strengthening, wall glides Program Reviewed with Goals,Progress Being Made,Home Exercise Program Patient Patient Excellent Understanding Plan Length of treatment 10 (weeks) Plan of Care Start 01/01/25 Date Plan of Care End 03/12/25 Date Treatment Frequency Once a Week Treatment Duration 45 Minutes Therapeutic Contents Active Range of Motion,Functional Activities,Home Exercise Program,Manual Therapy,Education,Neuromuscular Re-Education,Therapeutic Activities,Therapeutic Exercises Modalities As Needed Types of Modalities Other Additional Types of Moist hot pack, cold pack, Modalities Patient Instruction Home Exercise Program,Plan of Care,Questions/Concerns Patient Continue with Current Program Recommendations regenerated POC due to documentation error, pt d/c'd 02/26 as no appts scheduled >30 days Electronically Signed by: Randa Kelley OT 03/05/25 0838 If you are in agreement with this Plan of Care, please return a signed and dated copy. I have reviewed this Plan of Care and certify that the skilled therapy services above are required to meet the patient?s needs. Physician Signature Date Printed Name and Credentials Clinical Instructor Signature Printed Name and Credentials
--- NOTE | 2025-01-01 17:32 | OT.OP.EVAL ---
Visit Care Team Role Provider Type LAMBERT Turner Family Provider Advanced Station Engineer Main Line Primary Care Provider Specialty: Medical Address: [address] [place] [address], [address] Email: [email or web address] Yuridia Buckner PA-C Attending Provider Advanced Station Engineer Main Line Referring Provider Specialty: Medical Wound Care Address: [address] [place] [address], [address] Email: [email or web address] Occupational Therapy Initial Evaluation OT Outpatient Adult Evaluation Start: 01/01/25 08:15 Freq: Status: Active Protocol: Document 01/01/25 14:36 (Rec: 01/01/25 16:30 [id number]) General Information - Adult Visit Number 1 of 10 Visit Start Date 01/01/25 Visit Start Time 13:00 Visit Stop Time 13:45 Note Type Initial Evaluation Social History I tried to not say anything about it at first but it has been persistent 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 States pain level is the same intensity every time it is elicited and describes the pain as a pinching that radiates along her L tricep rating pain 4 out of 10. Pt states she notices pain most during overhead activities, putting her hand behind her back, and during exercises such as tricep stretching and pushups. Goals Objective Measurements MMT BUE 5/5 in all planes, testing as follows: Obriens (+ ), Cross body adduction (+), Painful Arc (+ at ~120*), Alyx (+), Evangelista (+), Neer ( +), AC joint distraction (-), pain also elicited during MMT of bicep flexion/internal rotation of shoulder/shoulder flexion Treatment Pt educated on pain management techniques and HEP Short Term Goals 1. Pt will independently demonstrate HEP for increased strength of rotator cuff within 3 weeks. 2. Pt will demonstrate decreased pain of 2/10 or less with AROM of shoulder within 3 weeks. 3. Pt will normalize postural alignment with verbal/tactile cuing during static and dynamic tasks within 3 weeks. Care Home Goals 1. Pt will demonstrate decreased pain of 2 or less during overhead activities within 6 weeks. 2. Pt will demonstrate proper posture and scapular positioning during dynamic movement without verbal cues throughout session within 6 weeks. 3. Pt will score <10 on QuickDASH assessment within 6 weeks. Assessment/Plan Patient Response Excellent Rehabilitation Potential Excellent Impairments Identified Body Mechanics,Pain,Posture Treatment Assessment Pt is a 44 year old female presenting with L shoulder pain beginning August 2024 with discomfort during resistive exercise and movement as well as when lying on L side for >30min. Pt states describes the pain as a pinching that radiates along her L tricep rating pain 4 out of 10. Symptoms consistent with shoulder impingement syndrome and possible AC joint dysfunction. Pt was educated on anatomy and etiology of symptoms as well as pain management techniques and HEP. Pt will benefit from continued skilled OT to reduce pain during functional activities and address postural and strength deficits . Home Exercise Program AROM of shoulder, scapular strengthening, wall glides Reviewed with Patient Goals,Progress Being Made,Home Exercise Program Patient Understanding Excellent
--- NOTE | 2025-01-13 09:27 | OT.OP.TRT ---
Visit Care Team Role Provider Type LAMBERT Turner Family Provider Advanced Molder Automobile Carpets Primary Care Provider Specialty: Medical Address: [address] [place] [address], [address] Email: [email or web address] Yuridia uBckner PA-C Attending Provider [employer]ets Referring Provider Specialty: Medical Wound Care Address: [address] [place] [address], [address] Email: [email or web address] Occupational Therapy Treatment Note OT Outpatient Treatment Note - Adult Start: 01/01/25 08:15 Freq: Status: Active Protocol: Document 01/13/25 09:07 (Rec: 01/13/25 09:25 [id number]) OT Outpatient Adult Treatment Note Session Time Visit Start Date 01/13/25 Visit Start Time 08:15 Visit Stop Time 09:00 Visit Information Visit Number 2 Plan of Care Dates 01/01/25-03/12/25 Setting Treatment Setting Outpatient Care Visit Type Note Type Treatment Note - Subjective Identification Type Name,Date of Identification Medical Record Reconciled With Comment I can't sleep on that side but, it hasn't been getting worse - Objective Objective Pt participated in review of HEP for improved scapular Measurements positioning to facilitate better humeral alignment and posture including good return demo of all scapular exercises and manual pectoralis release. Short Term Goals 1. Pt will independently demonstrate HEP for increased strength of rotator cuff within 3 weeks. 2. Pt will demonstrate decreased pain of 2/10 or less with AROM of shoulder within 3 weeks. 3. Pt will normalize postural alignment with verbal/ tactile cuing during static and dynamic tasks within 3 weeks. Security Representative Goals 1. Pt will demonstrate decreased pain of 2 or less during overhead activities within 6 weeks. 2. Pt will demonstrate proper posture and scapular positioning during dynamic movement without verbal cues throughout session within 6 weeks. 3. Pt will score <10 on QuickDASH assessment within 6 weeks. - Treatment 1 Descriptor Education on scapular and humeral positioning, etiology of symptoms and purpose/proper performance of exercises Physical Assistance Contact Guard Assistance Exercises 1 Descriptor HEP: Isometric Shoulder Ext/Int rotation, shoulder stabilization in quadruped, shoulder squeezes, Shoulder snow angels, shoulder circles, pendulum exercises, prone shoulder flex, 3-5 reps holding each 3-5 seconds x3x/day Manual Therapy Manual Therapy Pectoral Muscle Release - Assessment Patient Response to Good Treatment Rehabilitation Excellent Potential Impairments Body Mechanics,Flexibility,Motor Function,Pain,Posture, Identified Range of Motion Progress Towards Good Progress Goals Assessment of Improving Overall Progress Assessment of Pt educated on anatomy and etiology of shoulder Improvement impingement, provided HEP with education on purpose and proper demo of HEP with good return demo. Manual Pectoral release with education on how to perform at home with good return demo. Pt making good progress, excellent return demo. Pt will continue to benefit from skilled OT to address pain and functional limitations impacting indep performance of ADL and IADL, continue current POC Reviewed with Goals,Progress Being Made,Home Exercise Program Patient/Caregiver Patient/Caregiver Good Understanding -
--- NOTE | 2025-01-20 10:20 | OT.OP.TRT ---
Visit Care Team Role Provider Type LAMBERT Turner Family Provider Advanced Abstract Writer Primary Care Provider Specialty: Medical Address: [address] [place] [address], [address] Email: [email or web address] Yuridia Buckner PA-C Attending Provider Advanced Abstract Writer Referring Provider Specialty: Medical Wound Care Address: [address] [place] [address], [id number] Email: [email or web address] Occupational Therapy Treatment Note OT Outpatient Treatment Note - Adult Start: 01/01/25 08:15 Freq: Status: Active Protocol: Document 01/20/25 08:15 (Rec: 01/20/25 10:19 [id number]) OT Outpatient Adult Treatment Note Session Time Visit Start Date 01/20/25 Visit Start Time 08:15 Visit Stop Time 08:55 Visit Information Visit Number 3 of 10 Plan of Care Dates 01/01/25-03/12/25 Insurance pre-auth required all visits;no copay (AD);no Information deductible; Setting Treatment Setting Outpatient Care Visit Type Note Type Treatment Note - Subjective Identification Type Name,Date of Identification Intake Sheet Reconciled With Observations It hasn't changed much, its still mostly hurting to sleep on it - Objective Objective HEP progressed for improved scapular positioning to Measurements facilitate better humeral alignment and posture including good return demo of all scapular exercises and manual pectoralis release. Short Term Goals 1. Pt will independently demonstrate HEP for increased strength of rotator cuff within 3 weeks. 2. Pt will demonstrate decreased pain of 2/10 or less with AROM of shoulder within 3 weeks. 3. Pt will normalize postural alignment with verbal/ tactile cuing during static and dynamic tasks within 3 weeks. [facility]ci Goals 1. Pt will demonstrate decreased pain of 2 or less during overhead activities within 6 weeks. 2. Pt will demonstrate proper posture and scapular positioning during dynamic movement without verbal cues throughout session within 6 weeks. 3. Pt will score <10 on QuickDASH assessment within 6 weeks. - Exercises 1 Descriptor HEP progressed for improved scapular positioning to facilitate better humeral alignment and posture including good return demo of all scapular exercises and manual pectoralis release. Pt completed: 1. Serratus Punches with weight in supine using 2lb freeweights bilaterally 10 reps x2 2. Supine scapular squeezes using 1lb weights bilaterally 10 reps x2 3. Shoulder pendulum exercises in prone x1 min 4. Bilateral Shoulder extension from upward angle using cable machine x1lb, 10reps x2 5. Shoulder external and internal rotation with cable machine x1lb 10 reps x2 6. Standing Rows bilaterally at cable machine x1lb 10reps x2 7. Standing Shoulder flexion bilaterally using light blue resistance band 10 reps x2 Side Both Sets 2 Repetitions 10 Time 45 Tolerance Excellent Modifications Yes Required Complexity Upgraded - Assessment Patient Response to Excellent Treatment Rehabilitation Excellent Potential Impairments ADLs,Body Mechanics,Pain Identified Progress Towards Good Progress Goals Assessment of Improving Overall Progress Assessment of Continued education on anatomy and etiology of shoulder Improvement impingement, progressed HEP with good return demo. Pt reporting pain primarily with external rotation and sleep. Pt making good progress, excellent return demo. Pt will continue to benefit from skilled OT to address pain and functional limitations impacting indep performance of ADL and IADL, continue current POC Reviewed with Goals,Progress Being Made,Home Exercise Program Patient/Caregiver Patient/Caregiver Good Understanding - Plan Therapy Continue with Current Program Recommendations Amount of Therapy 1-2 Months Recommended Frequency of Once a Week Treatment Length of Session 45 Minutes Therapeutic Contents Active Range of Motion,Client Education,Functional Activities,Home Exercise Program,Manual Therapy, Education,Stretching/Flexibility Activities,Therapeutic Activities,Therapeutic Exercises,Modalities Modalities As Needed Types of Modalities Cyrotherapy,Other Additional Types of MHP Modalities
--- NOTE | 2025-02-26 09:44 | OT.OP.DC ---
Visit Care Team Role Provider Type LAMBERT Turner Family Provider Advanced Rayon Tester Primary Care Provider Address: [address] [place] [address], [id number] Email: [email or web address] Attending Provider Advanced [employer]on Tester Referring Provider Address: [address] [place] [address], [id number] Email: [email or web address] Outpatient OT Outpatient Adult Evaluation Start: 01/01/25 08:15 Freq: Status: Active Protocol: Document 01/01/25 14:36 (Rec: 01/01/25 16:30 [id number]) General Information - Adult Visit Information Visit Number 1 of 10 Plan of Care Dates 01/01/25-03/12/25 Session Time Visit Start Date 01/01/25 Visit Start Time 13:00 Visit Stop Time 13:45 Visit Type Note Type Initial Evaluation Social Information Social History I tried to not say anything about it at first but it has been persistent 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 States pain level is the same intensity every time it is elicited and describes the pain as a pinching that radiates along her L tricep rating pain 4 out of 10. Pt states she notices pain most during overhead activities, putting her hand behind her back, and during exercises such as tricep stretching and pushups. Goals Objective Measurements Objective MMT BUE 5/5 in all planes, testing as follows: Obriens Measurements (+), Cross body adduction (+), Painful Arc (+ at ~120*) , Alyx (+), Evangelista (+), Neer (+), AC joint distraction (-), pain also elicited during MMT of bicep flexion/internal rotation of shoulder/shoulder flexion Treatment Treatment Pt educated on pain management techniques and HEP Short Term Goals Short Term Goals 1. Pt will independently demonstrate HEP for increased strength of rotator cuff within 3 weeks. 2. Pt will demonstrate decreased pain of 2/10 or less with AROM of shoulder within 3 weeks. 3. Pt will normalize postural alignment with verbal/ tactile cuing during static and dynamic tasks within 3 weeks. Pier Runner Goals Pier Runner Goals 1. Pt will demonstrate decreased pain of 2 or less during overhead activities within 6 weeks. 2. Pt will demonstrate proper posture and scapular positioning during dynamic movement without verbal cues throughout session within 6 weeks. 3. Pt will score <10 on QuickDASH assessment within 6 weeks. Assessment/Plan Assessment Patient Response Excellent Rehabilitation Excellent Potential Impairments Body Mechanics,Pain,Posture Identified Treatment Assessment Pt is a 44 year old female presenting with L shoulder pain beginning August 2024 with discomfort during resistive exercise and movement as well as when lying on L side for >30min. Pt states describes the pain as a pinching that radiates along her L tricep rating pain 4 out of 10. Symptoms consistent with shoulder impingement syndrome and possible AC joint dysfunction. Pt was educated on anatomy and etiology of symptoms as well as pain management techniques and HEP. Pt will benefit from continued skilled OT to reduce pain during functional activities and address postural and strength deficits. Home Exercise AROM of shoulder, scapular strengthening, wall glides Program Reviewed with Goals,Progress Being Made,Home Exercise Program Patient Patient Excellent Understanding Plan Length of treatment 10 (weeks) Plan of Care Start 01/01/25 Date Plan of Care End 03/12/25 Date Treatment Frequency Once a Week Treatment Duration 45 Minutes Therapeutic Contents Active Range of Motion,Functional Activities,Home Exercise Program,Manual Therapy,Education,Neuromuscular Re-Education,Therapeutic Activities,Therapeutic Exercises Modalities As Needed Types of Modalities Other Additional Types of Moist hot pack, cold pack, Modalities Patient Instruction Home Exercise Program,Plan of Care,Questions/Concerns Patient Continue with Current Program Recommendations Functional Wrist/Hand Scan Hand Side Sensory Assessment Sensory Profile2 OT Outpatient Treatment Note - Adult Start: 01/01/25 08:15 Freq: Status: Active Protocol: Document 02/26/25 09:41 (Rec: 02/26/25 09:44 [id number]) OT Outpatient Adult Treatment Note Visit Information Plan of Care Dates 01/01/25-03/12/25 Insurance pre-auth required all visits;no copay (AD);no Information deductible; Setting Treatment Setting Outpatient Care Visit Type Note Type Discharge Summary General Information General Information Pt last seen 01/20/25, pt has not responded to outreach for scheduling of follow ups, will discharge as pt has not been seen in over 30 days and new referral can be placed if needed. No goals met due to incomplete course of care. - - Objective Short Term Goals 1. Pt will independently demonstrate HEP for increased strength of rotator cuff within 3 weeks. [NOT MET 02/26] 2. Pt will demonstrate decreased pain of 2/10 or less with AROM of shoulder within 3 weeks. [NOT MET 02/26/25 ] 3. Pt will normalize postural alignment with verbal/ tactile cuing during static and dynamic tasks within 3 weeks. [NOT MET 02/26/25] Pier Runner Goals 1. Pt will demonstrate decreased pain of 2 or less during overhead activities within 6 weeks. [NOT MET ] 2. Pt will demonstrate proper posture and scapular positioning during dynamic movement without verbal cues throughout session within 6 weeks. [NOT MET 02/26/25] 3. Pt will score <10 on QuickDASH assessment within 6 weeks. [NOT MET 02/26/25] - - Assessment Progress Towards Appropriate for Discharge Goals Assessment of Unchanged Overall Progress - Plan Therapy Discharge from Occupational Therapy Recommendations Amount of Therapy No Further Therapy Recommended Frequency of No Further Therapy Treatment
== END 2025-03-05 09:02 | disposition home or self-care (01) ==
LOC: OT 08:15
PROVIDERS: Family Provider Registered Nurse Diabetes Educator; PCP Registered Nurse Diabetes Educator; Referring Provider Physician Assistant; Visit Provider Physician Assistant
DX: M79.602 Pain in left arm (principal); M25.819 Other specified joint disorders, unspecified shoulder
CPT/HCPCS: 97110; 97140; 97165; 97530